=== PATIENT | female | born 1965 | race Caucasian/White ===

== ENCOUNTER 2019-12-22 09:41 | Inpatient (IN) | payer OTHER ==
--- NOTE | 2019-12-22 10:06 | ED Physician Documentation ---
PD HPI CHEST PAIN - Stated complaint Stated Complaint: HEART RACING - Chief complaint Chief Complaint: Cardiac - History obtained from History obtained from: Patient - History of Present Illness Timing - onset: Last night (Awaken during the night with a feeling of chest discomfort associated with a fast heart rate. Some slight lightheadedness. No some persistence of this into this morning. No prior similar episodes.) Timing - onset during: Sleep Timing - duration: Hours (6) Timing - details: Abrupt onset, Still present Quality: Pressure Location: Substernal Improved by: No: Rest Worsened by: No: Inspiration, Movement Associated symptoms: Shortness of air, Diaphoresis, Feeling faint / dizzy, Palpitations (feeling heart rate is going fast). No: Nausea Similar symptoms before: Has not had sx before Review of Systems Constitutional: denies: Fever, Chills Nose: denies: Rhinorrhea / runny nose, Congestion Throat: denies: Sore throat Cardiac: reports: Chest pain / pressure, Palpitations. denies: Pedal edema, Calf pain Respiratory: denies: Cough GI: denies: Abdominal Pain, Nausea, Vomiting Neurologic: reports: Generalized weakness. denies: Focal weakness, Numbness, Near syncope, Altered mental status PD PAST MEDICAL HISTORY - Past Medical History Cardiovascular: None Respiratory: None Neuro: None Endocrine/Autoimmune: None GI: None DISPUTE RESOLUTION SPECIALIST: None : None HEENT: None Psych: None Musculoskeletal: None Derm: None - Past Surgical History Past Surgical History: Yes General: Cholecystectomy - Present Medications Home Medications: Ambulatory Orders Medication Instructions Recorded Confirmed Aspirin [Aspirin EC] 81 mg PO DAILY #30 tablet. 12/23/19 diltiaZEM CD [Cardizem Cd] 120 mg PO DAILY #30 capsule 12/23/19 - Allergies Allergies/Adverse Reactions: Allergies Allergy/AdvReac Type Severity Reaction Status Date / Time No Known Drug Allergies Allergy Verified 12/22/19 09:48 - Social History Does the pt smoke?: No Smoking Status: Never smoker Does the pt drink ETOH?: Yes ETOH Use: Other (infrequently) Does the pt have substance abuse?: No - Immunizations Immunizations are current?: Yes - POLST Patient has POLST: No PD ED PE NORMAL - Vitals Vital signs reviewed: Yes - General General: Alert and oriented X 3, No acute distress, Well developed/nourished - Neck Neck: Supple, no meningeal sign, No adenopathy - Cardiac Cardiac: No murmur. No: RRR - Respiratory Respiratory: Clear bilaterally - Abdomen Abdomen: Soft, Non tender - Derm Derm: Normal color, Warm and dry - Extremities Extremities: No tenderness to palpate, Normal ROM s pain, No edema, No calf tenderness / cord - Neuro Neuro: Alert and oriented X 3, No motor deficit, Normal speech Results - Vitals Vitals: Oxygen O2 Source Room air - EKG (time done) 09:54 Rate: Rate (enter#) Rhythm: Atrial fibrillation [place]: Normal QRS: Normal Ischemia: Normal ST segments. No: ST elevation c/w ischemia, ST depression 12:25 Rate: Rate (enter#) (72) Rhythm: NSR [place]: Normal Intervals: Normal NE QRS: Normal Ischemia: Normal ST segments. No: ST elevation c/w ischemia, ST depression - Labs Labs: Laboratory Tests 12/22/19 12/22/19 12/22/19 10:14 10:14 10:14 WBC 8.2 RBC 4.33 Hgb 13.5 Hct 39.9 MCV 92.1 MCH 31.2 H MCHC 33.8 RDW 13.3 Plt Count 296 MPV 9.5 Neut # (Auto) 4.6 Lymph # (Auto) 2.8 [place] # (Auto) 0.6 Eos # (Auto) 0.2 Baso # (Auto) 0.1 Absolute Nucleated RBC 0.00 Nucleated RBC % 0.0 PT INR D-Dimer Sodium 139 Potassium 4.1 Chloride 108 Carbon Dioxide 23 Anion Gap 8.0 BUN 10 Creatinine 0.6 Estimated GFR (MDRD) 105 Glucose 119 H Calcium 9.1 Magnesium 2.1 Total Bilirubin 0.6 AST 27 ALT 39 Alkaline Phosphatase 57 Troponin I High Sens 12.9 Total Protein 7.4 Albumin 3.9 Globulin 3.5 Albumin/Globulin Ratio 1.1 Lipase 34 TSH 12/22/19 12/22/19 10:14 10:14 WBC RBC Hgb Hct MCV MCH MCHC RDW Plt Count MPV Neut # (Auto) Lymph # (Auto) [place] # (Auto) Eos # (Auto) Baso # (Auto) Absolute Nucleated RBC Nucleated RBC % PT 12.3 INR 1.1 D-Dimer 353.5 H Sodium Potassium Chloride Carbon Dioxide Anion Gap BUN Creatinine Estimated GFR (MDRD) Glucose Calcium Magnesium Total Bilirubin AST ALT Alkaline Phosphatase Troponin I High Sens Total Protein Albumin Globulin Albumin/Globulin Ratio Lipase TSH 2.51 PD MEDICAL DECISION MAKING - ED course Complexity details: reviewed results, re-evaluated patient (Heart rate slowed but still tachy with bolus dosing, but she feels much better as heart rate is 100-130. Tried Procan bolus and she did convert after about 1/2 was in. She is still new onset, so needs cardiac eval. ), considered differential (apparent new onset atrial fib during the night. Seems clear starting point, so will go with rate control and can consider rhythm control. No history of same. No history of regular alcohol use. ), d/w patient, d/w sr technical sales consultant (Dr. Colon, Hospitalist) Departure - Departure Disposition: 66 [facility] DC/Xfer Clinical Impression: Atrial fibrillation with rapid ventricular response Condition: Stable Discharge Date/Time: 12/22/19 13:26
[2019-12-22] MEDS ORDERED: DILTIAZEM 50 MG/10 ML VIAL IVP ONE (10:09)
[2019-12-22 10:18] LABS: BASOPHILS # (AUTO) 0.1 10^3/uL (0.0-0.1); BASOPHILS % (AUTO) 0.7 %; EOSINOPHILS # (AUTO) 0.2 10^3/uL (0.0-0.7); EOSINOPHILS % (AUTO) 2.2 %; HGB - HEMOGLOBIN 13.5 g/dL (12.0-16.0); LYMPHOCYTES # (AUTO) 2.8 10^3/uL (1.5-3.5); LYMPHOCYTES % (AUTO) 33.6 %; MEAN CORPUSCULAR HEMOGLOBIN 31.2 pg (27.0-31.0); MEAN CORPUSCULAR HGB CONC 33.8 g/dL (32.0-36.0); MEAN CORPUSCULAR VOLUME 92.1 fL (81.0-99.0); MEAN PLATELET VOLUME 9.5 fL (7.9-10.8); MONOCYTES # (AUTO) 0.6 10^3/uL (0.0-1.0); MONOCYTES % (AUTO) 7.8 %; NEUTROPHILS # (AUTO) 4.6 10^3/uL (1.5-6.6); NEUTROPHILS % (AUTO) 55.6 %; PLT - PLATELET COUNT 296 10^3/uL (130-450); RED BLOOD COUNT 4.33 10^6/uL (4.20-5.40); RED CELL DISTRIBUTION WIDTH 13.3 % (12.0-15.0); WHITE BLOOD COUNT 8.2 x10^3/uL (4.8-10.8)
[2019-12-22 10:31] LABS: ALBUMIN 3.9 g/dL (3.2-5.5); ALBUMIN/GLOBULIN RATIO 1.1 (1.0-2.2); BILIRUBIN,TOTAL 0.6 mg/dL (0.2-1.0); CALCIUM 9.1 mg/dL (8.5-10.3); CREATININE 0.6 mg/dL (0.4-1.0); MAGNESIUM 2.1 mg/dL (1.7-2.8); TOTAL PROTEIN 7.4 g/dL (6.7-8.2)
[2019-12-22] MEDS ORDERED: SODIUM CHLORIDE 0.9% 1,000 ML IV STA (10:42)
[2019-12-22] MEDS ORDERED: DILTIAZEM 50 MG/10 ML VIAL IVP STA ×2 (10:42→11:37)
[2019-12-22] MEDS ORDERED: PROCAINAMIDE 1,000 MG in SODIUM CHLORIDE 0.9% 240 ML IV STA (11:37)
[2019-12-22] MEDS ORDERED: NITROGLYCERIN SL 0.4 MG TABLET SL STA (11:39)
--- NOTE | 2019-12-22 11:41 | XRAY Report ---
Reason: Chest Pain Procedure Date: 12/22/2019 Accession Number: [id number] / [id number] Procedure: XR - Chest 1 View X-Ray CPT Code: 16697 Final Report FULL RESULT: EXAM: CHEST RADIOGRAPHY EXAM DATE: 12/22/2019 10:33 AM. CLINICAL HISTORY: Chest Pain. COMPARISON: None. TECHNIQUE: 1 view. FINDINGS: Lungs/Pleura: No focal infiltrate or evidence of edema. No pleural effusion or pneumothorax. Mediastinum: Normal cardiomediastinal contour. Other: The bones are unremarkable. IMPRESSION: No acute cardiopulmonary abnormality. RADIA
[2019-12-22] MEDS ORDERED: ONDANSETRON 4 MG/2 ML VIAL IVP PRN (11:59)
[2019-12-22] MEDS ORDERED: ACETAMINOPHEN 325 MG TABLET PO PRN (11:59)
[2019-12-22] MEDS ORDERED: SODIUM CHLORIDE FLUSH 0.9% 10 ML SYRINGE IVP PRN (11:59)
[2019-12-22 12:28] LABS: INR 1.1 (0.8-1.2); PT - PROTHROMBIN TIME 12.3 secs (9.9-12.6)
[2019-12-22 12:36] LABS: D-DIMER 353.5 ng/mL (200.0-255.0)
--- NOTE | 2019-12-22 12:43 | PHARMACY PROGRESS NOTE ---
- Best Possible Medication History Admit Date and Time: 12/22/19 1157 Processed by: Pharmacy Medication History completed: Yes Patient Interview: Completed Secondary Source(s): Pharmacy records As the person ultimately responsible for medication therapy, providers are able to order a medication from an existing home medication list in [facility] via the "Reconcile Routine" prior to Confirmation of that medication by academic support center director. Such practice is discouraged except when the physician, in their clinical judgment, deems that a medical need exists for a medication without regard to previous use.
[2019-12-22] MEDS ORDERED: SODIUM CHLORIDE 0.9% 1,000 ML IV SCH ×2 (13:00→16:38)
[2019-12-22] MEDS: ENOXAPARIN 40 MG/0.4 ML SYRINGE SUBQ SCH (13:52)
[2019-12-22] MEDS: ASPIRIN 325 MG TABLET PO SCH (16:37)
[2019-12-22] MEDS: SODIUM CHLORIDE FLUSH 0.9% 10 ML SYRINGE IVP SCH ×2 (16:37→22:59)
--- NOTE | 2019-12-22 17:13 | HISTORY & PHYSICAL EXAMINATION ---
DATE OF SERVICE: 12/22/2019 Physician: Carola Colon MD HISTORY OF PRESENT ILLNESS: This is a 54-year-old white female with a history of obesity and frozen right shoulder for which she gets physical therapy and rarely takes Tylenol with codeine. The patient awoke at 2:30 this morning with a sensation of rapid palpitations, tried different positions to see if it would go away and it did not, and she finally went and sat up on the couch to snooze. She did feel her chest be "tight" and that she could not get a full breath in, and she was slightly lightheaded but had no dizziness or syncope. She waited until her awoke at about 7:00 a.m. with continued symptoms and was brought to the emergency room. In the ER, she was found to have atrial fibrillation with rapid ventricular response with a rate as high as 185. She had a stable blood pressure with this. She received 1 sublingual nitroglycerin and also received Cardizem boluses of 10 mg and 15 mg, 3 total boluses, which improved her heart rate into the 110 and 120 range but remained in atrial fibrillation. Dr. Mayco Pacheco also ordered a loading dose of IV procainamide, and the patient was to be admitted to the ICU. As she was being moved from the ER to the ICU, she converted to sinus rhythm with rates in the 70s. She has never had this sensation before. She is active, gardens which does not cause her any chest pain or shortness of breath. PAST MEDICAL HISTORY: Frozen right shoulder. MEDICATIONS: Tylenol and codeine very infrequently, and no prescription medications. ALLERGIES: NONE. FAMILY HISTORY: Her mother had an episode of an irregular heartbeat, which may have been atrial fibrillation; no other cardiac history in the family. No other inherited diseases. SOCIAL HISTORY: The patient is a nonsmoker and never smoked. She drinks almost no alcohol. She has never used illicit drugs. 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 REVIEW OF SYSTEMS: She denies any dyspnea on exertion, orthopnea, or pedal edema. A comprehensive review of systems was performed and the pertinent positives are listed; the rest are negative. PHYSICAL EXAMINATION GENERAL: Middle-aged white female who appears older than her age, and she is morbidly obese. VITAL SIGNS: Blood pressure 103/74, heart rate of 87 in sinus rhythm. Previously her blood pressure was as low as 89/61, and the heart rate is as described in the history of present illness. HEENT: Prematurely araujo hair, otherwise unremarkable. Her oral mucosa is moist. NECK: No JVD or thyromegaly. No carotid bruits. CHEST: Clear. HEART: Distant heart sounds. No murmurs or rubs. BREASTS: Very large. ABDOMEN: Obese with pannus, nontender. Normal bowel sounds. EXTREMITIES: No clubbing, cyanosis, or edema. NEUROLOGIC: Grossly intact. LABORATORY DATA: Normal electrolytes. Normal BUN and creatinine. Troponin high sensitivity 12.9 and 12.5. TSH normal at 2.51. Normal liver tests. Normal CBC, normal INR 1.1. D-dimer 353. Serum alcohol level not present. Urinalysis not done yet. CHEST X-RAY: No active pulmonary disease. EKG: Atrial fibrillation with rapid ventricular response at a rate of 196. There is low voltage in the entire EKG. She has RSR prime in V1 and V2. IMPRESSION/DIAGNOSES 1. Atrial fibrillation with rapid ventricular response. 2. Abnormal EKG. 3. Morbid obesity. PLAN: Admit the patient to the ICU for the procainamide drip. Since she has already converted to sinus rhythm, she can be moved out of the ICU if she has a stable blood pressure, since she has ruled out for an NV but needs to stay on telemetry. Continue with Cardizem orally 30 mg every 6 hours or increase to 60 mg if there is tachycardia again. The patient should have an Echo, which we do not have here for 48 hours because it is a holiday weekend. Therefore, this could be done as an outpatient. She also would need outpatient stress testing and outpatient evaluation for possible sleep apnea, since her obesity gives her a risk factor for this. She does admit to snoring and has never been tested for sleep apnea. We will order an overnight oxygen saturation study while here to give a clue if this is the case. Start aspirin daily. Her CHADS score currently is 0 but LV ejection fraction is not known without an Echo. The patient may need outpatient Cardiology referral for further evaluation and management after discharge, if the PCP and she desire. CODE STATUS: FULL CODE. DEEP VENOUS THROMBOSIS PROPHYLAXIS: Pharmaceutical therapy. ATTESTATION: The patient is expected to be discharged or transferred to another facility within 96 hours: Yes. TD: 12/22/2019 16:49 BALTA
[2019-12-22 18:42] LABS: MUDS CUTOFF CONCENTRATIONS CUTOFF CONC BELOW:
[2019-12-22 18:52] LABS: AMPHETAMINE SCREEN,URINE NEGATIVE (NEGATIVE); BENZODIAZEPINES SCREEN, URINE NEGATIVE (NEGATIVE); COCAINE SCREEN URINE POSITIVE (NEGATIVE); METHADONE SCREEN, URINE NEGATIVE (NEGATIVE); METHAMPHETAMINES SCREEN, URINE POSITIVE (NEGATIVE); OPIATE SCREEN, URINE NEGATIVE (NEGATIVE); OXYCODONE SCREEN, URINE NEGATIVE (NEGATIVE); PROPOXYPHENE SCREEN, URINE NEGATIVE (NEGATIVE); TRICYCLIC ANTIDEPRESSANT,URINE NEGATIVE (NEGATIVE)
[2019-12-22] MEDS: FAMOTIDINE 20 MG TABLET PO SCH (20:59)
[2019-12-23 05:03] LABS: BASOPHILS # (AUTO) 0.1 10^3/uL (0.0-0.1); BASOPHILS % (AUTO) 0.7 %; EOSINOPHILS # (AUTO) 0.2 10^3/uL (0.0-0.7); EOSINOPHILS % (AUTO) 2.6 %; HGB - HEMOGLOBIN 11.4 g/dL (12.0-16.0); LYMPHOCYTES % (AUTO) 42.7 %; MEAN CORPUSCULAR HEMOGLOBIN 30.6 pg (27.0-31.0); MEAN CORPUSCULAR HGB CONC 32.8 g/dL (32.0-36.0); MEAN CORPUSCULAR VOLUME 93.5 fL (81.0-99.0); MEAN PLATELET VOLUME 9.4 fL (7.9-10.8); MONOCYTES # (AUTO) 0.4 10^3/uL (0.0-1.0); MONOCYTES % (AUTO) 5.6 %; NEUTROPHILS # (AUTO) 3.3 10^3/uL (1.5-6.6); NEUTROPHILS % (AUTO) 48.1 %; PLT - PLATELET COUNT 251 10^3/uL (130-450); RED BLOOD COUNT 3.72 10^6/uL (4.20-5.40); RED CELL DISTRIBUTION WIDTH 13.2 % (12.0-15.0); WHITE BLOOD COUNT 6.9 x10^3/uL (4.8-10.8)
[2019-12-23 05:11] LABS: CALCIUM 8.4 mg/dL (8.5-10.3); CREATININE 0.7 mg/dL (0.4-1.0)
[2019-12-23] MEDS: ASPIRIN 325 MG TABLET PO SCH (07:52)
[2019-12-23] MEDS: ENOXAPARIN 40 MG/0.4 ML SYRINGE SUBQ SCH (07:52)
[2019-12-23] MEDS: FAMOTIDINE 20 MG TABLET PO SCH (07:52)
[2019-12-23] MEDS: SODIUM CHLORIDE FLUSH 0.9% 10 ML SYRINGE IVP SCH (07:53)
[2019-12-23 09:38] LABS: MUDS CUTOFF CONCENTRATIONS CUTOFF CONC BELOW:
[2019-12-23 09:50] LABS: AMPHETAMINE SCREEN,URINE NEGATIVE (NEGATIVE); BENZODIAZEPINES SCREEN, URINE NEGATIVE (NEGATIVE); COCAINE SCREEN URINE NEGATIVE (NEGATIVE); METHADONE SCREEN, URINE NEGATIVE (NEGATIVE); METHAMPHETAMINES SCREEN, URINE NEGATIVE (NEGATIVE); OPIATE SCREEN, URINE NEGATIVE (NEGATIVE); OXYCODONE SCREEN, URINE NEGATIVE (NEGATIVE); PROPOXYPHENE SCREEN, URINE NEGATIVE (NEGATIVE); TRICYCLIC ANTIDEPRESSANT,URINE NEGATIVE (NEGATIVE)
--- NOTE | 2019-12-23 11:21 | Discharge Plan ---
Discharge Plan Problem Reviewed?: Yes Disposition: Home, Self Care Condition: Stable Prescriptions: Aspirin [Aspirin EC] 81 mg PO DAILY #30 tablet.dr Vicente CD [Cardizem Cd] 120 mg PO DAILY #30 capsule Diet: Regular Activity Restrictions: Activity as Tolerated Shower Restrictions: No Driving Restrictions: No (Not drive if you have dizziness or lightheadedness.) Instruction Topics: Diltiazem extended-release capsules or tablets, Aspirin ASA oral tablets, Atrial Fibrillation Dc, Stroke Prevent Live W Atrial Fib, Atrial Fibrillation Health Concerns: You were admitted to the hospital with new onset of atrial fibrillation in a very rapid heart rate. The heart rate and rhythm were stabilized with cardiac medications. You are being sent home on a new tablet called Cardizem, and you should take 1 baby aspirin daily lifelong. Please measure your blood pressure before you take the daily Cardizem and do not take it if your systolic blood pressure (top number) is 105 or lower. You need to see your PCP in the next 5 to 7 days for hospital follow-up and for ordering a sleep study, a cardiac Echocardiogram and a stress test. The PCP may want to refer you to a Clay Pigeon Loader as well. There are 2 [employer] Pigeon Loader that come to this [facility] clinic every (Dr. Gore and Dr. Sage), if you wish to come here. Plan of Treatment: As above. Care Goals: Improvement in symptoms and stabilization are the goals. Assessment: Patient understands and is agreeable with the plan. Additional Instructions or Follow Up instructions: If you have new or worsening symptoms, call your PCP for advice or come to the ER. No Smoking: If you smoke, Please STOP! Call for help. Follow-up with: Antonieta Bañuelos ARNP [Primary Care Provider] -
--- NOTE | 2019-12-23 11:26 | DISCHARGE SUMMARY ---
Discharge Summary Admit Date: 12/22/19 Discharge Date: 12/23/19 Discharging Provider: Carola Colon MD Primary Care Provider: Antonieta Bañuelos NP Code Status: Attempt Resuscitation Condition at Discharge: Stable Discharge Disposition: 01 Home, Self Care - HPI History of Present Illness: This is a relatively healthy 54-year-old white female, who only takes rare Tylenol and codeine for a frozen right shoulder. She awoke at 0230 with palpitations which gave her dyspnea and mild lightheadedness, she needed to sit up to sleep the rest of the night, waited for her to awaken and still had symptoms at 0700 and came to the ER. She was found to be in A. fib with RVR, with heart rate of 196. She received diltiazem IV boluses x3 which brought down her heart rate to 120, and then she was started on a Procainamide IV drip. The first troponin is normal. TSH is normal. CXR normal. The Hospitalist team iss consulted for admission for new onset of A. fib with RVR and she is being admitted to the ICU on a Procainamide drip. - HOSPITAL COURSE Hospital Course: 1) Afib with RVR, new onset Afib She was continued on Cardizem 30 mg po q6h. She got the iv procainamide loading dose, which had converted her to sinus rhythm. She got no further Procainamide. The troponins and TSH were normal. We had no Echo service available over the holiday weekend (). She remained in sinus rhythm and was discharged and recommended to take a daily baby aspirin and started on Cardizem CD 120 mg daily, and advised that she needs a stress test, an Echo and a sleep study. 2) Abnormal EKG An EKG was done when she converted to sinus rhythm. This showed RSR' in V1, which suggests Cor Pulmonale. She needs a stress test and Echo for completing the work-up, which can bne done as an outpatient. Her PCP may consider referring her to a Form Grader Operator for evaluation and management. 3) Abnormal respiratory lab result, sleep apnea suspected She had an overnight oxygen study, and had many episodes of desaturation, d ropping to 77% sat on room air, at the lowest. She likely has sleep apnea, as she reported awakening herself often due to loud snoring (or from being apneic, presumably). 4) Morbid obesity, BMI 44.6 Weight loss would be helpful. 5) Encounter for lab test A urine drug screen was done to evaluate for chemical causes of new onset Afib. Her urine toxicology test came back showing presence of cocaine, meth and PCP. She was questioned in detail a second time about her social history and drug habits and she denied using any of those or being exposed to them or having any possibility of someone administering them to her without her knowledge. This was confirmed by her sister, whom I spoke to on Facetime with the pt in her bed. A repeat urine drug screen was sent the following morning and it was entirely neg. The patient, and House Supervising Nurse reported that there had been several patients in the ER, at the time this pt was there, with drug use in their histories. It was presumed that this patient's first urine test result was a Lab Error, or mix up in report or contamination of specimen. A Safety Incident Report was therefore written up regarding the Lab. - ALLERGIES Allergies/Adverse Reactions: Allergies Allergy/AdvReac Type Severity Reaction Status Date / Time No Known Drug Allergies Allergy Verified 12/22/19 09:48 - MEDICATIONS Home Medications: Ambulatory Orders Medication Instructions Recorded Confirmed Aspirin [Aspirin EC] 81 mg PO DAILY #30 tablet. 12/23/19 diltiaZEM CD [Cardizem Cd] 120 mg PO DAILY #30 capsule 12/23/19 - PHYSICAL EXAM AT DISCHARGE General Appearance: positive: No acute distress, Alert, Other (Obese ) Eyes Bilateral: positive: Normal inspection, EOMI ENT: positive: ENT inspection nml, No signs of dehydration Neck: positive: Nml inspection, Thyroid nml, No JVD Respiratory: positive: No respiratory distress, Breath sounds nml Cardiovascular: positive: Regular rate & rhythm, No murmur, Other (Distant heart sounds due to large breasts.) Abdomen: positive: Non-tender, Nml bowel sounds, No distention Skin: positive: Color nml Extremities: positive: Non-tender, No pedal edema Neurologic/Psychiatric: positive: Oriented x3, Other (Non-focal.) - LABS Result Diagrams: 12/23/19 04:44 12/23/19 04:44 - DIAGNOSTIC IMAGING Diagnostic Imaging Results: Final report reviewed - FOLLOW UP Follow Up: See PCP this week for further tests and management. - TIME SPENT Time Spent in Discharge (Minutes): 45
--- NOTE | 2019-12-23 11:42 | PROVIDER PROGRESS NOTE ---
Assessment/Plan - Current Meds Current Meds: Current Medications Generic Name Dose Route Start Last Admin Trade Name Freq PRN Reason Stop Dose Admin Aspirin 325 mg 12/22/19 16:00 12/23/19 07:52 Jamie PO 325 mg DAILYWM YVES Administration Enoxaparin Sodium 40 mg 12/22/19 13:00 12/23/19 07:52 Lovenox SUBQ 40 mg DAILY YVES Administration Famotidine 20 mg 12/22/19 21:00 12/23/19 07:52 Pepcid PO 20 mg BID YVES Administration Sodium Chloride 10 ml 12/22/19 17:00 12/23/19 07:53 Normal Saline Flush 0.9% IVP 10 ml 0100,0900,1700 YVES Administration - Lab Result Fish Bone Diagrams: 12/23/19 04:44 12/23/19 04:44 - Additional Planning My Orders: My Active Orders 12/22/19 11:59 Activity Orders [RC] Q2HR Initiate Bowel Care Protocol [RC] .protocol Initiate Line Care Protocol [RC] QSHIFT Initiate Personal Care Protoco [RC] .protocol Oxygen Therapy [RC] Routine Telemetry- [RC] Q4HR Vital Signs [RC] 0800,1600,0000 Acetaminophen [Tylenol] 650 mg PO Q4HR PRN Ondansetron Inj [Zofran Inj] 4 mg IVP Q6HR PRN Sodium Chloride Flush 0.9% [Normal Saline Flush 0.9%] 10 ml IVP PRN PRN Code Status [OTHERS] Routine Condition of Patient [OTHERS] Routine DVT Prophylaxis [OTHERS] Routine 12/22/19 12:00 Daily Weight [RC] 0600 12/22/19 12:01 Social Work Consult [CONS] Routine 12/22/19 13:00 Enoxaparin [Lovenox] 40 mg SUBQ DAILY 12/22/19 16:00 Aspirin [Jamie] 325 mg PO DAILYWM 12/22/19 16:38 Sodium Chloride 0.9% [Normal Saline 0.9%] 1,000 ml IV TKO 12/22/19 17:00 Sodium Chloride Flush 0.9% [Normal Saline Flush 0.9%] 10 ml IVP 0100,0900,1700 12/22/19 21:00 Nocturnal O2 Saturation Study [RC] .ONCE Famotidine [Pepcid] 20 mg PO BID 12/22/19 Lunch Regular Diet [DIET] 12/23/19 11:24 Discharge [RC] .ONCE Initiate Discharge Checklist [RC] .ONCE 12/23/19 12:00 diltiaZEM CD [Cardizem Cd] 120 mg PO DAILY Objective Vital Signs: Vital Signs - 24 hr 12/22/19 12/22/19 12/22/19 11:30 11:48 12:09 Temperature Heart Rate 135 H 145 H 140 H Heart Rate [ Monitoring electrodes] Respiratory 24 18 14 Rate Blood Pressure 112/79 114/89 H 129/111 H Blood Pressure [Right Brachial artery] O2 Saturation 96 93 96 12/22/19 12/22/19 12/22/19 12:50 13:13 13:29 Temperature 36.3 C L 36.6 C Heart Rate 80 80 Heart Rate [ 76 Monitoring electrodes] Respiratory 12 20 19 Rate Blood Pressure 103/68 91/67 Blood Pressure 89/61 L [Right Brachial artery] O2 Saturation 98 98 100 12/22/19 12/22/19 12/22/19 14:00 16:00 17:49 Temperature 36.5 C Heart Rate Heart Rate [ 77 87 Monitoring electrodes] Respiratory 16 15 Rate Blood Pressure 103/74 Blood Pressure 89/65 L 103/74 [Right Brachial artery] O2 Saturation 100 100 12/22/19 12/22/19 12/23/19 19:21 22:35 00:16 Temperature 36.8 C 37.2 C Heart Rate Heart Rate [ 85 81 77 Monitoring electrodes] Respiratory 19 14 13 Rate Blood Pressure Blood Pressure 95/74 109/65 95/64 [Right Brachial artery] O2 Saturation 99 100 95 12/23/19 12/23/19 12/23/19 00:26 05:08 05:13 Temperature 36.9 C Heart Rate Heart Rate [ 77 Monitoring electrodes] Respiratory 11 L Rate Blood Pressure 95/64 119/77 Blood Pressure 119/77 [Right Brachial artery] O2 Saturation 100 12/23/19 07:49 Temperature 36.7 C Heart Rate Heart Rate [ 91 Monitoring electrodes] Respiratory 22 Rate Blood Pressure Blood Pressure 104/70 [Right Brachial artery] O2 Saturation 99 Oxygen O2 Source Room air I&O (Last 24 Hrs): Intake and Output Totals x24h 12/21/19 12/22/19 12/23/19 23:59 23:59 23:59 Intake Total 2385 1168 Output Total 100 Balance 1125 1168 - Results Results: Laboratory Results WBC 6.9 x10^3/uL (4.8-10.8) 12/23/19 04:44 RBC 3.72 10^6/uL (4.20-5.40) L 12/23/19 04:44 Hgb 11.4 g/dL (12.0-16.0) L 12/23/19 04:44 Hct 34.8 % (37.0-47.0) L 12/23/19 04:44 MCV 93.5 fL (81.0-99.0) 12/23/19 04:44 MCH 30.6 pg (27.0-31.0) 12/23/19 04:44 MCHC 32.8 g/dL (32.0-36.0) 12/23/19 04:44 RDW 13.2 % (12.0-15.0) 12/23/19 04:44 Plt Count 251 10^3/uL (130-450) 12/23/19 04:44 MPV 9.4 fL (7.9-10.8) 12/23/19 04:44 Neut # (Auto) 3.3 10^3/uL (1.5-6.6) 12/23/19 04:44 Lymph # (Auto) 3.0 10^3/uL (1.5-3.5) 12/23/19 04:44 [place] # (Auto) 0.4 10^3/uL (0.0-1.0) 12/23/19 04:44 Eos # (Auto) 0.2 10^3/uL (0.0-0.7) 12/23/19 04:44 Baso # (Auto) 0.1 10^3/uL (0.0-0.1) 12/23/19 04:44 Absolute Nucleated RBC 0.00 x10^3/uL 12/23/19 04:44 Nucleated RBC % 0.0 /100WBC 12/23/19 04:44 PT 12.3 secs (9.9-12.6) 12/22/19 10:14 INR 1.1 (0.8-1.2) 12/22/19 10:14 D-Dimer 353.5 ng/mL (200.0-255.0) H 12/22/19 10:14 Sodium 139 mmol/L (135-145) 12/23/19 04:44 Potassium 3.9 mmol/L (3.5-5.0) 12/23/19 04:44 Chloride 107 mmol/L (101-111) 12/23/19 04:44 Carbon Dioxide 24 mmol/L (21-32) 12/23/19 04:44 Anion Gap 8.0 (6-13) 12/23/19 04:44 BUN 11 mg/dL (6-20) 12/23/19 04:44 Creatinine 0.7 mg/dL (0.4-1.0) 12/23/19 04:44 Estimated GFR (MDRD) 88 (>89) L 12/23/19 04:44 Glucose 100 mg/dL (70-100) 12/23/19 04:44 Calcium 8.4 mg/dL (8.5-10.3) L 12/23/19 04:44 Magnesium 2.1 mg/dL (1.7-2.8) 12/22/19 10:14 Total Bilirubin 0.6 mg/dL (0.2-1.0) 12/22/19 10:14 AST 27 IU/L (10-42) 12/22/19 10:14 ALT 39 IU/L (10-60) 12/22/19 10:14 Alkaline Phosphatase 57 IU/L (42-121) 12/22/19 10:14 Troponin I High Sens 12.5 ng/L (2.3-14.8) 12/22/19 12:45 Total Protein 7.4 g/dL (6.7-8.2) 12/22/19 10:14 Albumin 3.9 g/dL (3.2-5.5) 12/22/19 10:14 Globulin 3.5 g/dL (2.1-4.2) 12/22/19 10:14 Albumin/Globulin Ratio 1.1 (1.0-2.2) 12/22/19 10:14 Lipase 34 U/L (22-51) 12/22/19 10:14 TSH 2.51 uIU/mL (0.34-5.60) 12/22/19 10:14 Nasal Screen MRSA (PCR) NEGATIVE (NEGATIVE) 12/22/19 13:55 Urine Opiates Screen NEGATIVE (NEGATIVE) 12/23/19 09:30 Ur Oxycodone Screen NEGATIVE (NEGATIVE) 12/23/19 09:30 Urine Methadone Screen NEGATIVE (NEGATIVE) 12/23/19 09:30 Ur Propoxyphene Screen NEGATIVE (NEGATIVE) 12/23/19 09:30 Ur Barbiturates Screen NEGATIVE (NEGATIVE) 12/23/19 09:30 Ur Tricyclics Screen NEGATIVE (NEGATIVE) 12/23/19 09:30 Ur Phencyclidine Scrn NEGATIVE (NEGATIVE) 12/23/19 09:30 Ur Amphetamine Screen NEGATIVE (NEGATIVE) 12/23/19 09:30 U Methamphetamines Scrn NEGATIVE (NEGATIVE) 12/23/19 09:30 U Benzodiazepines Scrn NEGATIVE (NEGATIVE) 12/23/19 09:30 Urine Cocaine Screen NEGATIVE (NEGATIVE) 12/23/19 09:30 U Cannabinoids Screen NEGATIVE (NEGATIVE) 12/23/19 09:30 Ethyl Alcohol < 5.0 mg/dL 12/22/19 12:45
[2019-12-23] MEDS ORDERED: diltiaZEM CD 120 MG CAPSULE PO SCH (12:00)
[2019-12-23 13:15] VITALS: BP 112/77
== END 2019-12-23 13:35 | disposition home or self-care (01) | DRG 309 ==
LOC: ED 09:41 → ICU 11:57
PROVIDERS: ADMIT Internal Medicine; ATTEND Internal Medicine
DX: I48.91 Unspecified atrial fibrillation (principal); Z68.42 Body mass index [BMI] 45.0-49.9, adult; I27.81 Cor pulmonale (chronic); G47.30 Sleep apnea, unspecified; M75.01 Adhesive capsulitis of right shoulder; E66.01 Morbid (severe) obesity due to excess calories
CPT/HCPCS: 36415; 71045; 80048; 80053; 80306; 80320; 83690; 83735; 84443; 84484; 85025; 85379; 85610; 87150; 93005; 94761; 96361; 96374; 96376; 99284; 99285; A9270; J1650; J2690; 80307

== ENCOUNTER 2020-01-02 10:15 | Outpatient (CLI) | payer OTHER | END 2020-01-02 10:16 | disposition home or self-care (01) | LOC: DI 10:15 | PROVIDERS: ATTEND Nurse Practitioner Family | DX: I48.91 Unspecified atrial fibrillation (principal); G47.39 Other sleep apnea | CPT/HCPCS: 93306 ==

== ENCOUNTER 2020-05-19 17:33 | Outpatient (CLI) | payer OTHER ==
--- NOTE | 2020-05-19 14:54 | SLEEP CARE CONSULTATION ---
Information from patient questionnaire entered by Marilou Espinal. I have reviewed and concur with the information entered by Marilou Espinal. This document represents the service I personally performed and the decisions made by me, Ashely Perez MD, [facility]. History of Present Illness Service Date and Time: 05/19/2020 1420 Reason for Visit: New patient Chief Complaint: reports: Unrefreshed sleep, Snoring, Excessive daytime sleepiness, Fatigue, Other (Atrial Fibrillation since November 2019) Date of Onset: Longtime Usual bedtime: 7247-7831 Time it takes to fall asleep: 30-60 minutes Snores at night: Yes Observed to quit breathing while asleep: No Sleeps alone due to snoring: No (but he wears ear plugs) Number of times waking at night: 1-2 Reasons for waking at night: reports: Pain (sometimes), Bathroom, Other (bad dreams) Toss, Turn, or Twitch while sleeping: Yes Recalls having dreams: Yes Usually gets out of bed at: [id number] Feels refreshed in the morning: No Morning headache: No Sleepy or fatigued during the day: Yes Ever fallen asleep while driving: No Takes day naps: Yes (sometimes) Dreams during day naps: Yes Prior sleep studies: No Additional HPI information: I had the pleasure of seeing Ms. Alberts today regarding the possibility of her having a sleep disorder. As you know, she is a 54 year old lady who complains of recent episode of atrial fibrillation. The patient tells me that she normally goes to bed around 10 pm 1 am, and it takes her approximately 60 minutes to fall asleep. She has been told that she snores loudly and irregularly at night. She has never been observed to stop breathing in her sleep. Her spouse can still sleep in the same bed. She can recall waking up on the average of 0 - 1 times during the night. Most of the time she wakes up bec ause of having to use the bathroom. She has never awakened because of her own snoring, choking, or having to gasp for air. There is a lot of tossing and turning in her sleep. No somniloquy (sleep talking) or somnambulism (sleep walking). Generally there is recollection of dreams. In the morning she usually gets up out of the bed around 7 a.m. not feeling refreshed nor rested. She usually does not have a morning headache. During the day she complains of feeling sleepy and fatigued. Her score on [place] Sleepiness Scale is 18 out of 24. She has never fallen asleep while driving nor has had any accident due to sleepiness. She usually does not take naps during the day. Upon falling asleep during the day she reports having dreams. She has never had sleep paralysis, experienced cataplexy or symptoms of restless leg syndrome. She reports occasionally having impaired concentration during the day. 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 Patient is and lives in [place]. Have you smoked in the past 12 months: No Alcohol use: No Caffeine use: Yes Caffeine amount and frequency: 1 cup/day Allergies and Home Medications Drug allergies reviewed: Yes (NKDA) Home medication list reviewed: Yes (Cartia and aspirin) Review of Systems Cardiovascular: reports: irregular heart rate or pulse Respiratory: denies: shortness of breath, wheeze, sputum production, chronic cough, other Gastrointestinal: denies: heartburn, difficulty swallowing, nausea, vomitting, diarrhea, abdominal pain, other Urinary: denies: incontinence, frequency, urgency, impotence, other Neurological: denies: headaches, seizure, head trauma, disorientation, speech dysfunction, gait or balance problems, fainting or unconsciousness, other Ear/Nose/Throat: reports: wisdom teeth removed Endocrine: reports: sluggishness Musculoskeletal: denies: joint pain, neck pain, back pain, joint swelling, muscle pain or cramping, mobility problems, other Immunologic: denies: sneezing, rash, itching, allergies to food or environment, other Physical Exam Vital signs obtained and entered by: N/A Height: 5 ft 2 in Weight: 220 lb Body Mass Index: 40.2 BMI Classification: Morbidly Obese Impression and Plan IMPRESSION: 1. Obstructive Sleep Apnea-Hypopnea Syndrome, as suggested by history of loud and irregular snoring, frequent awakenings during the night, unrefreshed sleep, cognitive impairment, and daytime hypersomnolence. Obstructive sleep apnea, left untreated, can increase the risk of recurrent paroxysmal atrial fibrillation. Narrow oropharynx and obesity are common predisposing factors for obstructive sleep apnea-hypopnea syndrome. Pathophysiology of sleep-disordered breathing was discussed. I recommend proceeding to polysomnography to confirm the diagnosis and to assess severity. If she has significant sleep disordered breathing, a manual CPAP titration study will also be performed to find the optimal treatment pressure. I informed the patient of what the sleep studies involve and after some discussion, she agreed to proceed. Plan: 1. Schedule an in-laboratory polysomnography. 2. Avoid long distance driving or when feeling sleepy. 3. Avoid alcohol, sedative and muscle relaxant around bedtime. 4. Attempt to lose weight. 5. Return in 1 to 2 weeks after the study to discuss results and initiate therapy Visit Type: Telehealth Video Video Type: [place] Patient Location: Home Location of Provider: Home Patient agrees and consents to this telehealth visit type: Yes Patient agrees to have their insurance billed: Yes Provider Statement: I spent 100% of the Telehealth Video Call with the patient with greater than 50% spent counseling the patient and coordination of care.
== END 2020-05-19 17:34 | disposition home or self-care (01) ==
LOC: SC 17:33
PROVIDERS: ATTEND Internal Medicine Pulmonary Disease
DX: R06.83 Snoring (principal); G47.10 Hypersomnia, unspecified; G47.8 Other sleep disorders; R41.89 Other symptoms and signs involving cognitive functions and awareness; E66.01 Morbid (severe) obesity due to excess calories; Z68.41 Body mass index [BMI] 40.0-44.9, adult; I48.91 Unspecified atrial fibrillation

== ENCOUNTER 2020-06-11 08:00 | Outpatient (CLI) | payer OTHER ==
--- NOTE | 2020-06-11 11:26 | CARDIAC PROCEDURE NOTE ---
DATE OF SERVICE: 06/11/2020 Physician: Carola Colon MD, [facility] INDICATION: Atypical chest pain, history of PSVT and untreated MELL. CARDIAC RISK FACTORS: Postmenopausal status, obesity. DESCRIPTION OF PROCEDURE: After signing informed consent, the patient underwent a Blayne-protocol treadmill stress test. No cardiac imaging was ordered with this test. RESTING HEART RATE: 73. PEAK HEART RATE: 150 (89% predicted maximum heart rate for age). RESTING BLOOD PRESSURE: 118/80. PEAK BLOOD PRESSURE: 174/89. The patient exercised for 5-1/2 minutes on a Blayne-protocol treadmill stress test. She achieved a peak heart rate of 150 (89% PMHR) and 7.1 METS. She developed shortness of breath quickly. There was no chest pain. She rated her perceived exertion was 15/20 at peak on the Robinson scale. There were no episodes of SVT seen during exercise or in recovery. RESTING EKG: Normal sinus rhythm, RSR' in V1. EKG AT PEAK: RSR' in both V1 and V2, no ST segment or T-wave changes seen. SUMMARY: 1. Abnormal resting EKG suggestive of pulmonary disease. 2. No ischemic changes occur by EKG criteria at a good level of stress achieved. 3. Fair exercise tolerance. 4. No cardiac imaging was ordered with this test. 5. This patient's cardiac risk based on all the above: Low. IMPRESSION: Normal stress test. cc: CINDY Rivas TD: 06/11/2020 10:13 MTDD
== END 2020-06-11 08:01 | disposition home or self-care (01) ==
LOC: DI 08:00
PROVIDERS: ATTEND Physician Assistant
DX: R07.89 Other chest pain (principal); R94.31 Abnormal electrocardiogram [ECG] [EKG]
CPT/HCPCS: 93017

== ENCOUNTER 2020-06-19 11:16 | Outpatient (CLI) | payer OTHER | END 2020-06-19 11:17 | disposition home or self-care (01) | LOC: SC 11:16 | PROVIDERS: ATTEND Internal Medicine Pulmonary Disease | DX: G47.33 Obstructive sleep apnea (adult) (pediatric) (principal); R09.02 Hypoxemia; E66.01 Morbid (severe) obesity due to excess calories; Z68.41 Body mass index [BMI] 40.0-44.9, adult | CPT/HCPCS: 95806 ==

== ENCOUNTER 2020-06-30 15:19 | Outpatient (CLI) | payer OTHER ==
--- NOTE | 2020-06-30 14:55 | SLEEP CARE CONSULTATION ---
Information from patient questionnaire entered by Varsha Joaquin. I have reviewed and concur with the information entered by Varsha Joaquin. This document represents the service I personally performed and the decisions made by , Ashely Perez MD, [facility]. History of Present Illness Service Date and Time: 06/30/2020 1400 Initial [place] Sleepiness Scale score: 18 (in 2020) Additional HPI information: To minimize the risk of COVID-19 exposure, the patient has requested and consented to this telephone visit. The patient also agrees to having her insurance billed. HPI: Ms. Chen was called for follow up of the home sleep apnea test (HSAT) she had on 06/19/2020. The polysomnography showed moderate obstructive sleep apnea- hypopnea with an AHI of 15.8/hr and carolynn SaO2 of 77%. During the study, the patient had 31 apneas (29 obstructive, 1 central, 1 mixed) and 93 hypopneas. The longest episode lasted 163.0 seconds. The respiratory events occurred more frequently during non-supine sleep (supine AHI was 14.8 and non-supine, 40.49). Hypoxemia was moderate, with the lowest oxygen saturation of 77 % and 52.4 minutes with SaO2 under 90%. Baseline oxygen saturation was normal (Average oxygen saturation was 92%). The patient was informed of these findings. I explained to her the pathophysiology behind obstructive sleep apnea. We then spent quite a bit of time discussing different treatment options. For mild obstructive sleep apnea, surgery and oral appliance are alternatives to nasal CPAP therapy but in moderate or severe cases, nasal CPAP is the most effective and reliable treatment. After some discussion, she opted to go with the nasal CPAP therapy. I explained to her how CPAP machine works and what to expect when using the mach ine. She is encouraged to use CPAP every night especially in the first 2 to 3 nights in order to get used to it. She should call me or her CPAP supplier to discuss any mechanical problem that may occur. If she snores while wearing the CPAP or feels like she needs more air from the machine, she should notify me and I will increase the pressure. Sleep Study - Results Type of Sleep Study: Home sleep study Prior sleep studies: No Allergies and Home Medications Drug allergies reviewed: Yes Home medication list reviewed: Yes Review of Systems Review of systems same as previous: Yes Physical Exam Vital signs obtained and entered by: To minimize the risk of COVID-19 exposure, detailed exam was not performed. Height: 5 ft 2 in Weight: 220 lb Body Mass Index: 40.2 BMI Classification: Morbidly Obese Impression and Plan IMPRESSION: 1. Obstructive Sleep Apnea-Hypopnea Syndrome, moderate, associated with moderate hypoxemia. Most likely, this is the cause of the patients symptoms of frequent awakenings, unrefreshed sleep, and excessive daytime sleepiness. She also has atrial fibrillation that could have been caused by obstructive sleep apnea-hypopnea. As mentioned above, the patient will be started on autoCPAP set at 5 - 15 cmH2O. Depending on her response and compliance she may be brought back for an overnight CPAP titration study. PLAN: 1. Prescription made for an autoCPAP with heated humidifier and related supplies. 2. Attempt to lose weight. 3. Be careful when driving until her sleepiness resolves completely on nasal C PAP therapy. Visit Type: Telehealth Video Video Type: Doximity Patient Location: Home Location of Provider: Office Patient agrees and consents to this telehealth visit type: Yes Patient agrees to have their insurance billed: Yes Time Spent with Patient (minutes): 15 Provider Statement: I spent 100% of the Telehealth Video Call with the patient with greater than 50% spent counseling the patient and coordination of care.
== END 2020-06-30 15:20 | disposition home or self-care (01) ==
LOC: SC 15:19
PROVIDERS: ATTEND Internal Medicine Pulmonary Disease
DX: G47.33 Obstructive sleep apnea (adult) (pediatric) (principal); E66.01 Morbid (severe) obesity due to excess calories; Z68.41 Body mass index [BMI] 40.0-44.9, adult